=== PATIENT | male | born 1985 | race Caucasian/White ===

== ENCOUNTER 2016-11-28 21:28 | Emergency (ER) | payer SELFPAY ==
--- NOTE | ~2016-11-28 | ER ---
PATIENT'S NAME: CHILANGO RUTLEDGE [facility] AGE: 31 Y [address] ROOM: [place] [address] LOCATION: [facility] ADMIT DATE: 11/28/2016 ER/Outpatient Report DISCHARGE DATE: 11/28/2016 FAMILY PHYSICIAN: PHYSICIAN, NO ATTENDING PHYSICIAN: Juan Cardozo Time of Admission: 2128 hours. Time of Evaluation: 2140 hours. CHIEF COMPLAINT: Hematemesis. HISTORY OF PRESENT ILLNESS: Chilango is a 31-year-old, male, who presents with his father to the emergency room with an onset of hematemesis x4 this evening. He reports around 1930 hours, he did eat at [facility], had hamburger and Portuguese fries, did not have any spicy sauce. He reports he went home, laid down, at around 9 p.m. he felt sick. He did get up and had 4 emesis, reports blood, but not sure if there were clots. He reports feeling fine up to this point. He denies any fevers or chills, there is no diarrhea. The patient is a smoker, does drink quite a bit of caffeine daily, but denies any GERD or any recent travel. He denies excessive chocolate, but does have a few energy drinks off and on. The patient has no prior history of stomach pathology, ulcers, and/or gastritis. The patient does currently still have his gallbladder. PAST SURGICAL HISTORY: 1. Postsurgical appendectomy. 2. Postsurgical left 5th phalange surgery. 3. Postoperative right foot surgery. 4. Postoperative right arm surgery. ALLERGIES: NO KNOWN MEDICAL ALLERGIES. MEDICATIONS: The patient denies taking any medications on a regular basis and/or p.r.n. He denies any regular use of ibuprofen and/or Motrin. SOCIAL HISTORY: The patient is a smoker, 2 packs a day for the last 16 years. He does drink at least 2 L bottle of pop daily, a couple of energy drinks a couple of times a week. He denies any regular alcohol use. FAMILY HISTORY: The patient does have 1 sister, unknown history per dad. Dad is here, reports PATIENT'S NAME: CHILANGO RUTLEDGE [facility] AGE: 31 Y [address] ROOM: [place] [address] LOCATION: [facility] ADMIT DATE: 11/28/2016 ER/Outpatient Report DISCHARGE DATE: 11/28/2016 FAMILY PHYSICIAN: PHYSICIAN, NO ATTENDING PHYSICIAN: Juan Cardozo he does have some heart issues, stomach issues, but not sure yet what they are as they are in the process of figuring them out. REVIEW OF SYSTEMS: All systems reviewed by myself and negative with the exception of those noted in the HPI. PHYSICAL EXAMINATION: VITAL SIGNS: Current height 5 feet 7 inches, weight 107.5 kg, temperature 97.4, pulse 80, respirations 18, and blood pressure 177/98, and he is 94% on room air. GENERAL: The patient is alert, oriented x4, cooperative, in no acute distress. There is no pallor or diaphoresis noted. HEENT: Head: Normocephalic, atraumatic. Ears: Ear canals are clear. TMs intact. No redness or fluid noted. Nose: Nares are patent. There is no congestion noted. There is no evidence of epistaxis. Mouth and Throat: Oropharynx is clear, but mildly irritated throughout. He denies any sore throat. Uvula is midline. There is no obvious blood in his oropharyngeal cavity. NECK: Supple, no lymphadenopathy, no thyromegaly appreciated. CHEST AND LUNGS: Lung sounds are clear throughout. HEART: Regular rhythm, no murmur noted. ABDOMEN: Softly distended, does feel pretty gassy. He is pretty tender to the epigastric area only. There is no right upper quadrant tenderness. No back pain or CVA tenderness noted. Difficult to palpate due to the discomfort, but no obvious masses or organomegaly noted. EXTREMITIES: Lower extremities, no peripheral edema noted. NEUROLOGIC: Cranial nerves grossly intact. LABORATORY AND DIAGNOSTIC STUDIES: WBC 11.4, hemoglobin 15.2, MCV within normal limits. PT, PT-INR is within normal limits. Sodium 139, potassium 3.7, glucose slightly elevated at 150, creatinine 1.2. AST 48, ALT 124. Amylase and lipase within normal limits. H. pylori is negative. Please note, an x-ray of the abdomen was performed, which was reviewed with Dr. Cardozo. There was no obstruction noted. He does have some scattered air and stool throughout the colon. Official over-read is pending. ASSESSMENT: 1. Gastritis, likely. 2. Hematemesis secondary to forceful vomiting. 3. Elevated liver enzymes. 4. Tobacco use disorder. PATIENT'S NAME: CHILANGO RUTLEDGE [facility] AGE: 31 Y [address] ROOM: [place], [place] [address] LOCATION: [facility] ADMIT DATE: 11/28/2016 ER/Outpatient Report DISCHARGE DATE: 11/28/2016 FAMILY PHYSICIAN: PHYSICIAN, NO ATTENDING PHYSICIAN: Juan Cardozo PLAN: The patient did receive a GI cocktail along with IV Protonix 40 mg IV x1. He does not report a lot of difference in the discomfort, but he did not have any vomiting during his ER stay and he denies any nausea. I did review all labs and x-rays with Dr. Cardozo, there is no active bleeding at this time. We will go ahead and start him on omeprazole 20 mg 1 p.o. daily, a script is written for over the next 2 weeks. He is to be reviewed for GERD precautions and he is to avoid any Motrin or ibuprofen or NSAIDs. Encouraged to cut down on smoking along with caffeine. He denies any need for any nausea medicine at home. He has also denied any blood in his stools in which he will continue to monitor. He is to follow up with his primary care physician, Dr. Nolsaco in the next 10-14 days, sooner if there would be any onset of hematemesis and/or rectal bleeding. Dad and the patient verbalized understanding, no further concerns. The patient's condition is stable. JONN ELDRIDGE APRN FOR [facility]LLINS/louis /[id number] d: 11/29/16 0149 t: 12/02/16 1634, OUTPATIENT REPORT
[2016-11-28 22:22] LABS: BASOPHIL # 0.1 K/uL (0.0-0.2); BASOPHIL % 0.4 %; EOSINOPHIL # 0.2 K/uL (0.0-0.5); EOSINOPHIL % 1.9 %; HEMOGLOBIN 15.2 g/dL (12.0-17.0); IMMATURE GRANULOCYTE # 0.1 K/uL (0.0-0.3); IMMATURE GRANULOCYTE % 0.4 %; LYMPHOCYTE # 2.7 K/uL (0.8-4.0); LYMPHOCYTE % 23.6 %; MCH 30.6 pg (27.0-34.0); MCHC 34.5 gm/dL (32.0-36.5); MCV 88.5 fl (83.0-98.0); MONOCYTE # 0.6 K/uL (0.0-1.0); MONOCYTE % 5.6 %; MPV 10.3 fl (9.4-12.4); NEUTROPHIL # (ANC) 7.8 K/uL (1.4-9.0); NEUTROPHIL % 68.1 %; NRBC % 0 /100WBC (0-0.00); PLATELET COUNT 266 K/uL (150-450); RBC 4.97 M/uL (4.00-6.00); RDW-CV 12.7 % (11.9-14.6); WBC 11.4 K/uL (4.0-11.0)
[2016-11-28 22:31] LABS: INR - (THERAPEUTIC) 0.92 (0.92-1.07); PROTIME 9.6 SECONDS (9.8-11.4); PTT 28 SECONDS (25-32)
[2016-11-28 22:40] LABS: ALK PHOS 116 IU/L (33-138); ALT 124 IU/L (12-78); ANION GAP 10.7 (10.0-19.0); AST 48 IU/L (10-40); BLOOD UREA NITROGEN 15 mg/dL (6-24); CALCIUM 8.7 mg/dL (8.5-10.5); CHLORIDE 106 mMol/L (96-110); CO2 26 mMol/L (22-32); CREATININE 1.2 mg/dL (0.6-1.3); ESTIMATED GFR (MDRD EQUATION) > 60; POTASSIUM 3.7 mMol/L (3.7-5.1); SODIUM 139 mMol/L (135-145); TOTAL BILIRUBIN 0.4 mg/dL (0.0-1.5); TOTAL PROTEIN 7.2 g/dL (6.0-8.4)
== END 2016-11-28 23:15 | disposition disaster alternative care site (69) ==
LOC: GMED 21:28
PROVIDERS: Emergency Medicine
DX: K92.0 Hematemesis (principal); R74.8 Abnormal levels of other serum enzymes; F17.210 Nicotine dependence, cigarettes, uncomplicated; Z90.49 Acquired absence of other specified parts of digestive tract; Z98.890 Other specified postprocedural states
CPT/HCPCS: C9113